=== PATIENT | female | born 1980 | race Caucasian/White ===

== ENCOUNTER 2018-05-08 16:42 | Emergency (ER) | payer MEDICAID, SELFPAY ==
[~2018-05-08] VITALS: Ht 162.6 cm; Wt 51.0 kg
[2018-05-08 16:51] VITALS: BP 133/80
== END 2018-05-08 17:28 | disposition home or self-care (01) ==
LOC: ED 17:06
DX: K08.89 Other specified disorders of teeth and supporting structures (principal); F17.200 Nicotine dependence, unspecified, uncomplicated
CPT/HCPCS: 99283